=== PATIENT | female | born 1980 | race Caucasian/White ===

== ENCOUNTER 2022-05-29 12:42 | Emergency (ER) | payer MEDICAID, SELFPAY ==
[2022-05-29 12:49] VITALS: BP 102/77; PULSE 86; RESP 18; O2SAT 97; BMI 25.7
--- NOTE | 2022-05-29 12:58 | ED_ITS ---
HPI - General Adult General Time Seen by Provider: 12:57 Date Seen: 05/29/22 Chief complaint: Allergic Reaction Stated complaint: Allergic reaction, itching, swelling hands Time Seen by Provider: 05/29/22 12:43 Source: patient and RN notes reviewed Mode of arrival: ambulatory Limitations: no limitations History of Present Illness HPI narrative: Patient is coming in with concern of allergic reaction happening around all of her fingers. She was using fake nail materials. She states she has been doing this for about 4 months but 2 days ago use a different color and has started to have swelling and itching around her fingers. She took the nails off. She did not use Benadryl as it makes her so tired. She is wondering if will put her on prednisone. She has had no systemic symptoms such is mouth or respiratory symptoms. She has never had this happen before and we did review that it may notice be the the color but certainly could be the chemicals that she is starting to react to. We did discuss contact dermatitis which could be coming from the chemicals in the nails. All around the ends of her fingers and around the nail beds there are itchy and swollen. Related Data Allergies Allergy/AdvReac Type Severity Reaction Status Date / Time mold Allergy Uncoded 05/29/22 12:57 Review of Systems Status of ROS: Reports: 6 or more systems reviewed and unremarkable except as noted in History and below Exam Const: Vital Signs, click to edit/add: Vital Signs - 24 hr 05/29/22 12:49 Pulse Rate [Apical ] 86 Respiratory Rate 18 Blood Pressure [Ri ght Upper Arm] 102/77 Pulse Oximetry 97 Oxygen Delivery Me thod Room Air Documenting provider has reviewed patient's vital signs: yes Common normals: no apparent distress, average body habitus, oriented x3, no limitations, healthy appearing and alert HENMT: Common normals: normocephalic, head/scalp atraumatic, hearing grossly normal bilaterally, external nose normal, moist oral mucous membranes and oropharynx normal Head and scalp: normocephalic and atraumatic Nose: external nose normal Eye: Common normals: PERRL, EOMs intact bilaterally, conjunctivae normal and no scleral icterus Conjunctiva: conjunctiva(e) normal Pupil: PERRL Resp: Common normals: normal respiratory effort, no retractions, no use of accessory muscles and clear to auscultation bilaterally Auscultation: clear to auscultation bilaterally Cardio: Common normals: regular rate, regular rhythm, S1 normal heart sound, S2 normal heart sound, no gallops, no clicks and no murmurs Rate: regular rate Rhythm: regular rhythm Heart sounds: S1 normal and S2 normal Neuro: Common normals: oriented x3 Sensorium/orientation: alert Skin: Narrative: Around the ends of the fingers at the end of the nails and along the sides of the nail beds, there is some erythema, warmth. A few of the ends look a little bit more excoriated almost like a contact dermatitis. Nothing concerning regarding infection at this time on my visualization. Course Vital Signs Vital signs: Initial Vital Signs Temperature Source Temporal Artery Scan 05/29/22 12:49 Pulse Rate 86 05/29/22 12:49 Pulse Rhythm 05/29/22 12:49 Respiratory Rate 18 05/29/22 12:49 Blood Pressure 102/77 05/29/22 12:49 Blood Pressure Mean 85 05/29/22 12:49 Pulse Oximetry 97 05/29/22 12:49 Oxygen Delivery Method 05/29/22 12:49 Vital Signs Pulse Rate 86 05/29/22 12:49 Respiratory Rate 18 05/29/22 12:49 Blood Pressure 102/77 05/29/22 12:49 Pulse Oximetry 97 05/29/22 12:49 Oxygen Delivery Method 05/29/22 12:49 Pulse Rate 86 05/29/22 12:49 Respiratory Rate 18 05/29/22 12:49 Blood Pressure 102/77 05/29/22 12:49 Pulse Oximetry 97 05/29/22 12:49 Oxygen Delivery Method 05/29/22 12:49 Critical Care Time Critical Care Time Critical Care Time: No Discharge Plan Discharge Clinical Impression: Contact dermatitis Patient Disposition: Home, Self-Care Condition: Stable Instructions: Contact Dermatitis (ED) Additional Instructions: Do not use these nail products. Would avoid nail products all together for awhile. Can use claritin once to twice daily as needed for itching. Use prednisone as prescribed, take with food. If your fingers are not improving with these measures in the next week or if there are further concerns, may need to see dermatology. Follow Up/Referrals: Glen Carrera MD [Primary Care Provider] - Stand Alone [facility] Info Inst[facility]
== END 2022-05-29 13:29 | disposition home or self-care (01) ==
PROVIDERS: Emergency Provider Family Medicine; PCP Surgery
DX: L23.5 Allergic contact dermatitis due to other chemical products (principal)
CPT/HCPCS: 99283; 99284

== ENCOUNTER 2023-02-01 03:12 | Emergency (ER) | payer MEDICAID, SELFPAY ==
[2023-02-01 03:29] VITALS: BP 134/76; PULSE 75; RESP 20; TEMP 36.2; O2SAT 96; BMI 25.3
--- NOTE | 2023-02-01 03:51 | ED.GENADULT ---
HPI - General Adult General Chief complaint: Headache/Migraine Stated complaint: Head Pain and swelling Time Seen by Provider: 02/01/23 03:39 Source: patient Mode of arrival: ambulatory Limitations: no limitations History of Present Illness HPI narrative: 42-year-old female presents the emergency department with ?swelling? to the back of her neck and head area. There is no visible swelling. There is no trauma or injury. She reports that she has been having some ongoing mild headache and neck and upper back pain. She has been working with her chiropractor. She last had an adjustment 2 days ago. She denies any numbness or tingling. She has focal tenderness at the base of the right occiput. She took some ibuprofen at 9:00 a.m. and then again about 2 hours prior to arrival with no improvement. Note that this is about a 16 hour interval in between doses. She is not using Tylenol. She has not tried heat, ice. Headache is accompanied by some photophobia had some mild nausea. No use of muscle relaxants. No prior history of head or neck surgeries. No numbness or tingling or weakness in the arms. No stroke-like symptoms. No fever. Past medical history she reports is notable for anxiety she has some p.r.n. lorazepam that she last used about a week ago and she smokes marijuana daily. She denies any other long-term health problems. Her only allergies to mold. ROS is notable for the HEENT and musculoskeletal symptoms as above, otherwise denies times 12 systems. Related Data Home Medications Medication Instructions Recorded Confirmed albuterol sulfate 90 mcg/actuation 1 - 2 puff inhalation Q4H PRN cough 02/01/23 02/01/23 aerosol inhaler (Ventolin HFA) ibuprofen 600 mg tablet 600 mg PO Q6H PRN 02/01/23 02/01/23 ketoconazole 2 % shampoo topical 02/01/23 lorazepam 1 mg tablet 1 mg PO Q6H PRN 02/01/23 02/01/23 metronidazole 500 mg tablet 500 mg PO BID 02/01/23 02/01/23 Previous Rx's Medication Instructions Recorded cyclobenzaprine 10 mg tablet 5 - 10 mg PO BID PRN muscle spasm 02/01/23 #10 tabs ibuprofen 600 mg tablet 600 mg PO Q6-8H PRN headache #20 02/01/23 tabs Allergies Allergy/AdvReac Type Severity Reaction Status Date / Time mold Allergy Uncoded 05/29/22 12:57 PFSH [facility] Social History Smoking Status: Current every day smoker Do you use any of these nicotine containing products: None Second hand tobacco smoke exposure: No How often do you have a drink containing alcohol: never How often do you have six or more drinks on one occasion: Never AUDIT-C Alcohol total score: 0 Non-prescribed substance use: denies use service: No Exam Const: Vital Signs, click to edit/add: Vital Signs - 24 hr 02/01/23 03:29 Temperature 97.2 F L Pulse Rate [Right Pulse Oximeter] 75 Respiratory Rate 20 Blood Pressure [Le ft Upper Arm] 134/76 Pulse Oximetry 96 Oxygen Delivery Me thod Room Air Documenting provider has reviewed patient's vital signs: yes Other: Poor insight. Mildly disheveled HENMT: Common normals: normocephalic, head/scalp atraumatic and TM's normal bilaterally Head and scalp: normocephalic and atraumatic Tympanic membrane: TM's normal bilaterally Mouth: oral and palatal mucosa normal Throat: posterior oropharynx normal Other: Absolutely no visible swelling to the neck. She is point tender to palpation of the right greater occipital nerve. Eye: Common normals: PERRL, EOMs intact bilaterally and conjunctivae normal General eye: normal appearance of both eyes Conjunctiva: conjunctiva(e) normal Pupil: PERRL Neck & C-Spine: Common normals: full ROM, no lymphadenopathy, supple and no meningeal signs Other: Mild paraspinal muscle tenderness, no point bony tenderness. Normal range of motion. Lymph: Lymphatic: no lymphadenopathy noted Resp: Common normals: normal respiratory effort and no use of accessory muscles Effort & inspection: able to speak in complete sentences Cardio: Common normals: regular rate, regular rhythm, S1 normal heart sound and S2 normal heart sound Rate: regular rate Rhythm: regular rhythm Heart sounds: S1 normal and S2 normal Back & Pelvis: Thoracic spine/upper back: normal to inspection Neuro: Meningeal signs: no meningeal signs Cranial nerves: CN normal except as noted Speech: speech normal Gait (neuro): normal gait Motor exam: strength 5/5 throughout, no tremor noted and no movement abnormalities noted Psych: Insight: limited Judgement: limited Skin: Common normals: no rashes or lesions noted General skin exam: no rashes or lesions noted Course Vital Signs Vital signs: Initial Vital Signs Temperature 97.2 F L 02/01/23 03:29 Temperature Source Temporal Artery Scan 02/01/23 03:29 Pulse Rate 75 02/01/23 03:29 Pulse Rhythm Regular 02/01/23 03:29 Respiratory Rate 20 02/01/23 03:29 Blood Pressure 134/76 02/01/23 03:29 Blood Pressure Mean 95 02/01/23 03:29 Pulse Oximetry 96 02/01/23 03:29 Oxygen Delivery Method Room Air 02/01/23 03:29 Vital Signs Temperature 97.2 F L 02/01/23 03:29 Pulse Rate 75 02/01/23 03:29 Respiratory Rate 20 02/01/23 03:29 Blood Pressure 134/76 02/01/23 03:29 Pulse Oximetry 96 02/01/23 03:29 Oxygen Delivery Method Room Air 02/01/23 03:29 Temperature 97.2 F L 02/01/23 03:29 Pulse Rate 75 02/01/23 03:29 Respiratory Rate 20 02/01/23 03:29 Blood Pressure 134/76 02/01/23 03:29 Pulse Oximetry 96 02/01/23 03:29 Oxygen Delivery Method Room Air 02/01/23 03:29 Medical Decision Making MDM Narrative Medical decision making narrative: Tension headache with greater occipital nerve impingement. There are no signs of intracranial hemorrhage, meningitis, shingles, trauma or injury. Recommend L of IV fluid, IV Toradol, IV Benadryl and oral Tylenol. Low re-evaluated in our. Anticipate discharge on Flexeril. No indications for labs or x-rays. Update: Improvement in pain with Toradol and medications given. Counseled on alarm symptoms, she requests a new prescription for ibuprofen 600 mg which is provided also Flexeril as needed p.r.n.. follow up as needed Discharge Plan Discharge Clinical Impression: Tension headache Patient Disposition: Home w/ Parent or Adult Condition: Improved Instructions: Tension Headache (ED) Additional Instructions: As we discussed, there is no swelling in your head. That abnormal feeling is from pressure on your greater occipital nerve from muscular tension. I am glad the medications helped. I will give you a prescription for ibuprofen and a muscle relaxant, Flexeril to use as needed if your symptoms recur. I would recommend that you continue visiting the chiropractor. Typically, headaches do not need to be seen in the emergency department unless there are stroke-like symptoms or a fever over 100.4 or severe trauma Activity Level: No Restrictions Discharge Diet: Regular Prescriptions: New ibuprofen 600 mg tablet 600 mg PO Q6-8H PRN (Reason: headache) Qty: 20 0RF cyclobenzaprine 10 mg tablet 5 - 10 mg PO BID PRN (Reason: muscle spasm) Qty: 10 0RF No Action ketoconazole 2 % shampoo topical metronidazole 500 mg tablet 500 mg PO BID lorazepam 1 mg tablet 1 mg PO Q6H PRN ibuprofen 600 mg tablet 600 mg PO Q6H PRN albuterol sulfate [Ventolin HFA] 90 mcg/actuation HFA aerosol inhaler 1 - 2 puff INHALATION Q4H PRN (Reason: cough) Follow Up/Referrals: Glen Carrera MD [Primary Care Provider] - Stand Alone Forms: [employer] Info Instructions
[2023-02-01] MEDS: diphenhydrAMINE 25 MG in 0.9 % SODIUM CHLORIDE 100 ml 100 ML 402 MG IVPB (04:09)
[2023-02-01] MEDS: KETOROLAC 15 MG/ML inj IVP (04:09)
[2023-02-01] MEDS: 0.9 % SODIUM CHLORIDE 1000 ml 1,000 ML IV (04:09)
--- NOTE | 2023-02-01 04:28 | ED.NURSE ---
pt pressed call light and stated that she wanted her IV out. Patient states that she is felling better and doesnt like how the IV is making her arm feel. Patient states that she belives that the toradol amde al of the swelling go down in her head and she is feeling much better and would like to go home.
== END 2023-02-01 04:35 | disposition home or self-care (01) ==
LOC: ED 04:35
PROVIDERS: Emergency Provider Family Medicine; PCP Surgery
DX: G44.209 Tension-type headache, unspecified, not intractable (principal)
CPT/HCPCS: 96365; 96375; 99283; 99284; J1200; J1885; J7030

== ENCOUNTER 2023-11-05 13:42 | Outpatient (CLI) | payer MEDICAID, SELFPAY | END 2023-11-05 13:43 | disposition home or self-care (01) | LOC: NFLDREF 13:44 | PROVIDERS: PCP Surgery; Visit Provider Obstetrics & Gynecology | DX: R30.0 Dysuria (principal) | CPT/HCPCS: 87086 ==

== ENCOUNTER 2024-01-07 08:13 | Day surgery (SDC) | payer MEDICAID, SELFPAY ==
[2024-01-07] MEDS: LACTATED RINGERS 1000 ML 1,000 ML 100 ML IV ×2 (09:00→10:24)
[2024-01-07] MEDS: SODIUM CHLORIDE 0.9 % (FLUSH) 10 ML SYRINGE IVF (09:00)
[2024-01-07] MEDS: MIDAZOLAM HCL 1 MG/ML inj IVP (09:00)
[2024-01-07 09:06] LABS: Ur HCG Qualitative* Negative (Negative)
[2024-01-07 09:10] VITALS: BP 119/72; PULSE 67; RESP 16; TEMP 36.4; O2SAT 99
[2024-01-07 09:12] VITALS: BMI 26.3
[2024-01-07] MEDS: CEFAZOLIN 2 GM INJ IVP (09:40)
[2024-01-07] MEDS: BUPIVACAINE 0.25% 30 ML 4 ML INJECTION (09:49)
--- NOTE | 2024-01-07 10:30 | W.ANESCHARGE ---
Anesthesia Charges Start Date/Time Anesthesia Start Date: 01/07/24 Anesthesia Start Time: 09:36 Stop Date/Time Anesthesia Stop Date: 01/07/24 Anesthesia Stop Time: 10:45
--- NOTE | 2024-01-07 10:38 | PM.GSPRC ---
Operative Note Date of procedure: 01/07/24 Pre-op diagnosis: Right lower back lipoma Post-op diagnosis: Same Type of Procedure: Excision of right lower back lipoma, x2 Indications: Patient is a 43-year-old female who presented to clinic with symptomatic right lower back lipomas. She reports significant discomfort and pain when pushing on the area. Risks and benefits of excision in the operating room were discussed at length the patient. Risks included, but were not limited to: Bleeding, infection, risk of damage to surrounding structures, risk of recurrence and possible need for additional procedures. All questions and concerns were addressed with patient agreeing to proceed. Procedure Description: After discussing the risks and benefits of the procedure, the patient signed informed consent.? The operative site was marked and the patient was brought to the operating room and placed on the operating table in lateral decubitus position.? Care was taken to pad the patient's pressure points.?? The patient was then given sedation by anesthesia.?? The operative site was then prepped and draped in the usual sterile fashion.? A time-out was then performed. The area was anesthetized with 1% lidocaine and 0.25% Marcaine. A transverse 3 cm incision was made over the marked area. Dissection was carried down through subcutaneous tissues. Lipomas were difficult to palpate intraoperatively. Several encapsulated mature fat nodules were appreciated underneath the incision. These were excised and passed off to the back table for pathology. A total of 2 lesions were removed, measuring approximately 2.5 cm and 1.5 cm. After removal of the lesions the area was again palpated, with no other lipomatous masses identified. The cavity was irrigated with normal saline. The incision was then closed in layers with interrupted 3 0 Vicryl and running 4-0 Monocryl. Dermabond was placed over top. ? The patient was then woken and transported to the recovery area in stable condition. ? The patient tolerated the procedure well. Findings: Mature lipomatous fat nodules of the right lower back. Anesthesia: MAC and local Surgeon: Bozena Blankenship MD Estimated blood loss (mL): 5 Specimen: Other Additional Specimen Information: Right lower back mass Condition: stable Disposition: same day
--- NOTE | 2024-01-07 10:43 | W.ANESCHARGE ---
Anesthesia Charges Start Date/Time Anesthesia Start Date: 01/07/24 Anesthesia Start Time: 09:36 Stop Date/Time Anesthesia Stop Date: 01/07/24 Anesthesia Stop Time: 10:45
[2024-01-07 10:45] VITALS: BP 109/73; PULSE 54; RESP 16; TEMP 36.6; O2SAT 92
[2024-01-07 11:00] VITALS: BP 103/69; PULSE 57; RESP 16; O2SAT 98
[2024-01-07 11:15] VITALS: BP 101/63; PULSE 59; RESP 16; O2SAT 97
--- NOTE | 2024-01-07 11:33 | SUR.PHASEII ---
pt requesting nurse to take out IV, pt drinking water.
--- NOTE | 2024-01-07 12:32 | SUR.PHASEII ---
Report was given to internal communications writer at 1145 that patient had received all she could have and patient had requested IV be removed multiple times so IV was taken out by reporting RN. Pt had received MAC anesthesia and had been on SDS for over an hour. Broom Worker attempted to assist patient to get up post op at 1150. Patient verbalized I feel like i'm going to throw up when I sit up. Broom Worker did tell patient sometimes this helps them feel better when they do. Patient verbalized,why are you talking so fucking loud, I don't like you I want my other nurse back. Broom Worker quieted voice even more and verbalized, I understand you are not feeling well but we need to get you up so you can take a big nap at home and sleep off anesthesia. It was also reported to internal communications writer that patient arrived to [facility] nauseated pre op. Broom Worker then offered Q-easy patch as well. Pt verbalized, I don't want your smelly patch. Broom Worker verbalized understanding. Patient sat up in bed and closed eyes. After a few minutes, internal communications writer encouraged patient to bring legs to the side of the bed and patient verbalized, get away I don't like you I want my other nurse back you're so fucking pushy. KAYLAN Ford in room during this episode as well as Patients friend. Broom Worker exited room and consulted NICHOLE Bhardwaj. Lashae spoke with patient and offered to replace IV to administer Haldol or Benadryl. Patient declined while sitting in w/c and verbalized,I just want to go home. Patient did have 200cc brown emesis in room prior to getting into w/c and was spitting into emesis bag when in w/c. Lashae VARELA verbalized understanding and escorted patient out to vehicle with KAYLAN Ford assisting.
== END 2024-01-07 12:30 | disposition home or self-care (01) ==
PROVIDERS: Obstetrics & Gynecology; PCP Surgery; Visit Provider Surgery
PROC: (CPT 21931; principal; 2024-01-07 09:30)
DX: D17.1 Benign lipomatous neoplasm of skin and subcutaneous tissue of trunk (principal)
CPT/HCPCS: 21931; 00300; 00400; 81025; 82565; 85018; 86850; 86900; 86901; 88305; 88377; J0665; J0690; J1100; J1885; J2250; J2405; J2704; J3010; J3490; J7120

== ENCOUNTER 2024-01-08 22:49 | Emergency (ER) | payer MEDICAID, SELFPAY ==
[2024-01-08 23:19] VITALS: BP 93/60; PULSE 63; RESP 20; TEMP 36.7; O2SAT 97; BMI 25.3
--- NOTE | 2024-01-08 23:36 | ED.GENADULT ---
HPI - General Adult General Chief complaint: Post Op Complication Stated complaint: Post-surgery, incision site is red. Time Seen by Provider: 01/08/24 23:00 History of Present Illness HPI narrative: Patient is a 43-year-old woman who had a lipoma excised from the right posterior lumbar region yesterday. She comes in tonight stating that she feels like the area is swollen and she is having extreme pain. She has had no fevers no chills no night sweats no neurologic symptoms. The area of induration really has not changed. She states that she has been eating and drinking normally and has been having no other significant symptoms. Related Data Home Medications Medication Instructions Recorded Confirmed albuterol sulfate 90 mcg/actuation 1 - 2 puff inhalation Q4H PRN cough 02/01/23 01/08/24 aerosol inhaler (Ventolin HFA) ibuprofen 600 mg tablet 600 mg PO Q6H PRN 02/01/23 01/08/24 ketoconazole 2 % shampoo topical 02/01/23 10/20/23 lorazepam 1 mg tablet 1 mg PO Q6H PRN 02/01/23 01/08/24 fluconazole 150 mg tablet mg ONCE 01/04/24 Previous Rx's Medication Instructions Recorded cyclobenzaprine 10 mg tablet 5 - 10 mg (0.5 - 1 x 10 mg) PO BID 02/01/23 PRN muscle spasm #10 tabs Allergies Allergy/AdvReac Type Severity Reaction Status Date / Time prednisone Allergy Intermediate Agitated Verified 01/08/24 23:23 Review of Systems Status of ROS: Reports: 6 or more systems reviewed and unremarkable except as noted in History and below [facility] Medical History Ganglion of left wrist (2017) ?M67.432 - Ganglion, left wrist (ICD-10) History of vaginal delivery History of adenomatous polyp of colon (05/2019) ?Z86.010 - Personal history of colonic polyps (ICD-10) History of abnormal cervical Pap smear (2007) ?Z87.42 - Personal history of other diseases of the female genital tract (ICD-10) Surgical History History of lipoma ?Z86.018 - Personal history of other benign neoplasm (ICD-10) History of loop electrical excision procedure (LEEP) ?Z98.890 - Other specified postprocedural states (ICD-10) History of colposcopy (2007) ?Z98.890 - Other specified postprocedural states (ICD-10) Family History Maternal Grandmother Lung cancer Bone cancer Diabetes Social History Smoking Status: Current every day smoker What tobacco products do you use: cigarettes Do you use any of these nicotine containing products: None Second hand tobacco smoke exposure: No How often do you have a drink containing alcohol: never How often do you have six or more drinks on one occasion: Never AUDIT-C Alcohol total score: 0 Non-prescribed substance use: marijuana (any form) Caffeine: Yes Are you using contraception or practicing any form of control: Yes (nexaplon) service: No Exam Narrative: Exam Narrative: EXAM GENERAL: Patient is very emotional. EYES: No scleral icterus. LYMPH: No supraclavicular or cervical lymphadenopathy. SKIN: Examination of her wound on her posterior lumbar region shows normal area of wound healing induration. No significant erythema no drainage no pustule in's no fluctuance. EXT: No dependent lower extremity pedal edema. HEART: Regular rate and rhythm with no murmurs, rubs, or gallops. LUNGS: Clear to auscultation bilaterally with no crackles or wheezes. ABD: Soft, non tender, non distended. PSYCH: Good eye contact, speech is not pressured. Const: Vital Signs, click to edit/add: Vital Signs - 24 hr 01/08/24 23:19 Temperature 98.1 F Pulse Rate [Pulse Oximeter] 63 Respiratory Rate 20 Blood Pressure [Ri ght Upper Arm] 93/60 Pulse Oximetry 97 Oxygen Delivery Me thod Room Air Course Course ED Course: Patient seen and examined. Vital Signs Vital signs: Initial Vital Signs Temperature 98.1 F 01/08/24 23:19 Temperature Source Temporal Artery Scan 01/08/24 23:19 Pulse Rate 63 01/08/24 23:19 Pulse Rhythm Regular 01/08/24 23:19 Pulse Strength 3+ Normal 01/08/24 23:19 Respiratory Rate 20 01/08/24 23:19 Blood Pressure 93/60 01/08/24 23:19 Blood Pressure Mean 71 01/08/24 23:19 Blood Pressure Position Left Lateral 01/08/24 23:19 Pulse Oximetry 97 01/08/24 23:19 Oxygen Delivery Method Room Air 01/08/24 23:19 Vital Signs Temperature 98.1 F 01/08/24 23:19 Pulse Rate 63 01/08/24 23:19 Respiratory Rate 20 01/08/24 23:19 Blood Pressure 93/60 01/08/24 23:19 Pulse Oximetry 97 01/08/24 23:19 Oxygen Delivery Method Room Air 01/08/24 23:19 Temperature 98.1 F 01/08/24 23:19 Pulse Rate 63 01/08/24 23:19 Respiratory Rate 20 01/08/24 23:19 Blood Pressure 93/60 01/08/24 23:19 Pulse Oximetry 97 01/08/24 23:19 Oxygen Delivery Method Room Air 01/08/24 23:19 Medical Decision Making [facility] Narrative Medical decision making narrative: Patient is a 43-year-old woman comes in today with postoperative pain. Patient is nontoxic in appearance and has a normal exam on my part. I did carefully palpated and examined the area of the wound I find no abnormalities. At this time I did offer reassurance. Patient does not tolerate Tylenol is been taking ibuprofen. Did give her 15 tablets of tramadol. I recommended continued wound care with a follow-up with her surgeon as scheduled. Differential diagnosis includes but not limited to normal wound healing cellulitis abscess neurologic injury. Discharge Plan Discharge Clinical Impression: Post-op pain Condition: Stable Additional Instructions: Continue ibuprofen Ice Tramadol as directed Symptomatic care Follow-up with your doctor as discussed. Activity Level: No Restrictions Discharge Diet: Regular Prescriptions: No Action fluconazole 150 mg tablet ONCE Rx Instructions: take at end of antibiotics for yeast infection ketoconazole 2 % shampoo topical lorazepam 1 mg tablet 1 mg PO Q6H PRN ibuprofen 600 mg tablet 600 mg PO Q6H PRN albuterol sulfate [Ventolin HFA] 90 mcg/actuation HFA aerosol inhaler 1 - 2 puff INHALATION Q4H PRN (Reason: cough) cyclobenzaprine 10 mg tablet 5 - 10 mg PO BID PRN (Reason: muscle spasm) Qty: 10 0RF Follow Up/Referrals: Glen Carrera MD [Primary Care Provider] - Stand Alone Forms: [employer] Info Instructions
== END 2024-01-09 00:09 | disposition home or self-care (01) ==
LOC: ED 23:45
PROVIDERS: Emergency Provider Internal Medicine; PCP Surgery
DX: G89.18 Other acute postprocedural pain (principal)
CPT/HCPCS: 99283

== ENCOUNTER 2025-01-21 06:26 | Emergency (ER) | payer MEDICAID, SELFPAY ==
--- OUTSIDE RECORDS SUMMARY | 2025-01-21 06:28 | XMS_ITS | Clinical Summary ---
Author Organization [place] Address [address] [facility] [place] [address] Care Team Providers Care Placement Manager Name Role Phone [facility], [facility] Primary Care Provider Allergies Active Allergy Reactions Criticality Noted Date Comments Prednisone 10/09/2018 anxiety Medications LORazepam (ATIVAN) 1 MG tablet Take 1 mg by mouth every 6 hours as needed for anxiety (pt does not take more that 4 pills/month) Active Social History Tobacco Use Types Packs/Day Years Used Date Smoking Tobacco: Never Assessed Adolescent Education Answer Date Record ed Getting School Help Needed Not on file 12/06 Comments Unknown Sex and Gender Information Value Date Recorded Sex Assigned at Not on file Legal Sex Female 5:32 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 Gender Identity Not on file Sexual Orientation Not on file Last Filed Vital Signs Vital Sign Reading Time Taken Comments Blood Pressure 107/71 10/09/2018 6:45 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 Pulse - - Temperature 36.6 C (97.9 F) 10/09/2018 7:14 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 Respiratory Rate 16 10/09/2018 5:39 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 Oxygen Saturation 100% 10/09/2018 6:45 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 Inhaled Oxygen Concentration - - Weight - - Height - - Body Mass Index - - Plan of Treatment Not on file Care Teams Placement Manager Relationship Specialty Start Date End Date [facility], [facility] [address] [place] [address] PCP - General 10/09/18
--- OUTSIDE RECORDS SUMMARY | 2025-01-21 06:29 | XMS_ITS | Clinical Summary ---
Author Organization [employer] Address [facility] [place] [address] Care Team Providers Care Song Lyricist Name Role Phone Glen Carrera MD Primary Care Provider [phone]- [phone] Allergies Active Allergy Reactions Criticality Noted Date Comments Mold Extracts Other - Describe In Comment Field Comment: rash and swelling/ itching, Description: Prednisone Agitation 05/22/2014 Medications biotin 1 mg capIndications:H air loss Take 1 Capsule (1,000 mcg) by mouth. 90 Capsule 3 3 Active LORazepam (ATIVAN) 1 mg tabletIndication s:Anxiety TAKE 1 TABLET BY MOUTH EVERY 6 HOURS NEEDED. DO NOT TAKE MORE THAN 2 TABLETS PER WEEK. 30 Tablet 4 Active ibuprofen (ADVIL; MOTRIN) 600 mg tabletIndication s:Foot pain, left Take 1 Tablet (600 mg) by mouth every 6 hours if needed for Pain. Maximum of 3200 mg in 24 hours. 90 Tablet 1 4 Active albuterol HFA (PRO-AIR; VENTOLIN; PROVENTIL) 90 mcg/actuation inhalerIndicatio ns:Wheezing Inhale 1-2 Puffs by mouth every 4 hours if needed (Cough). 18 g 4 Active triamcinolone (ARISTOCORT; KENALOG) 0.1 % creamIndications :Skin irritation Apply topically to affected area(s) two times daily. Use twice daily on affected area for up to 2 weeks straight, then stop 80 g 4 Active hydrOXYzine HCL (ATARAX) 25 mg tabletIndication s:Anxiety Take 1 Tablet (25 mg) by mouth every 6 hours if needed for Anxiety. 25 Tablet 4 Active mupirocin 2% ointmentIndicati ons:Folliculitis Apply topically to affected area(s) three times daily. Use for up to 5 days 22 g 3 4 Active cetirizine (ZYRTEC) 10 mg tabletIndication s:Contact dermatitis, unspecified contact dermatitis type, unspecified trigger Take 1 Tablet (10 mg) by mouth once daily. 30 Tablet 4 Active ketoconazole 2% shampoo (NIZORAL) 2 % shampooIndicatio ns:Other seborrheic dermatitis lather on damp scalp, leave on for 5 minutes, then rinse with water. 240 mL 5 4 Active Hospital, Clinic, or Other Facility Administered Medication Ordered Dose Route Frequency Start Date End Date Status etonogestrel subdermal implant (NEXPLANON) 1 EachIndications:Encounter for removal and reinsertion of Nexplanon 1 Each Sdrm Q 3 YEARS 08/06/2021 Active Active Problems Problem Noted Date Diagnosed Date De Quervain's tenosynovitis, left 04/21/2023 Ganglion of left wrist 08/28/2021 Adenomatous colon polyp 06/02/2019 Overview (06/02/2019): Colonoscopy 05/2019 polyp, repeat in 5 years Anxiety 02/08/2018 PTSD (post-traumatic stress disorder) 02/08/2018 Tobacco use 09/10/2016 Other seborrheic dermatitis 09/11/2010 Contact dermatitis and other eczema 02/20/2009 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 02/05/2009 Overview (02/10/2024): 03/25/2007 HSIL 04/09/2007 ASC-H/HPV+ 05/27/2007 NIL 06/02/2008 HSIL 09/13/2008 Waldo: NICHELLE 3 with extension into endocervical glands 02/05/2009 LEEP: NICHELLE 3, Positive NICHELLE 3 endocervical margin 12/25/2015 ASCUS/HPV Negative 04/23/2017 ASCUS/HPV Negative 02/08/2018 LSIL/HPV+ 03/01/2018 Waldo: NICHELLE I, ECC NICHELLE I 03/08/2019 NIL/HPV Negative 04/24/2020 NIL/HPV Negative 01/22/2023 ASCUS/HPV +, HPV 16/18 negative (Provider recommended colp, patient declines) 08/14/23 ASCUS/HPV+, HPV 16/18 Negative Plan: Colposcopy Unspecified sinusitis (chronic) 09/25/2008 Unspecified constipation 08/14/2008 Periapical abscess without sinus 03/10/2007 Depressive disorder, not elsewhere classified Resolved Problems Problem Noted Date Diagnosed Date Resolved Date 35 weeks gestation of 12/31/2016 02/08/2018 Second trimester 10/06/2016 0 12/03/2016 ASCUS of cervix with negative high risk HPV 12/25/2015 02/17/2018 Overview (05/07/2017): 12/2015; 04/2017 Plan: Pap/HPV due 04/2018 Toxic effect of venom(989.5) 05/16/2012 12/25/2015 Unspecified asthma(493.90) 04/21/2012 1 Urinary tract infection, site not specified 11/20/2011 12/25/2015 Contact dermatitis and other eczema, due to unspecified cause 03/14/2011 12/25/2015 Cellulitis and abscess of unspecified site 09/11/2010 12/25/2015 Torticollis, unspecified 01/28/201002/2021 Acute atopic conjunctivitis 04/05/2009 12/25/2015 Dysplasia of cervix, unspecified 02/05/2009 02/08/2018 Unspecified symptom associat ed with female genital organs 06/02/2008 12/25/2015 Bipolar disorder, unspecified 02/07/2008 07/16/2021 Infections of genitourinary tract antepartum 7 12/25/2015 Dysuria 06/16/2007 12/25/2015 CONDITION IN OTHER, ANTEPARTUM 05/27/2007 12/25/2015 Abnormal glandular Papanicol aou smear of cervix 05/27/2007 02/08/2018 Acute bronchitis 08/06/2004 12/25/2015 2 DEG BURN FINGR W THUMB 11/14/2003 Immunizations Immunization Administration Dates Next Due Td (Age >=7 Years) 08/25/2022 Td, Preservative Free (age >= 7 Years) 1,06/02/2008 Tdap 08/16/2011 Family History Medical History Relation Name Comments Cancer Maternal Grandmother lung, b one; not sure where cancer started Diabetes Maternal Grandmother Cancer-breast Other Paternal Great Aunt Cancer-colon No Family History Cancer-ovarian No Family History Relation Name Status Comments Maternal Grandmother Other Social History Tobacco Use Types Packs/Day Years Used Date Smoking Tobacco: Every Day Cigarettes 2 12.3 Started: 2012 Smokeless Tobacco: Former Tobacco Cessation:Ready to Q uit: No; Counseling Given: No Alcohol Use Standard Drinks/Week Comments No 0 (1 standard drink = 0.6 oz pur e alcohol) Social Connections Answer Date Recorded Do you often feel lonely or isolated from those around you? 0 08/14/2023 Financial Resource Strain Answer Date R ecorded Difficulty of Paying Living Expenses 3 08/14/2023 Difficulty of Paying Living Expenses Not on file 08/14/2023 Food Insecurity Answer Date Recorded Do you worry your food will run out before you are able to buy more? 1 08/14/2023 Transportation Needs Answer Date Record ed Does lack of transportation keep you from medica l appointments? 1 08/14/2023 Does lack of transportation keep you from work, meetings or getting things that you need? 1 08/14/2023 Housing Stability Answer Date Recorded What is your housing situation today? 1 08/14/2023 Comments No Sex and Gender Information Value Date Recorded Sex Assigned at Not on file Legal Sex Female 6:22 AM PAPIER MACHE MOLDER Gender Identity Not on file Sexual Orientation Not on file Obstetrics History Para Term AB IAB SAB Ectopic Multiple Livin g Live Births 5 3 3 0 0 0 0 0 0 3 Date Outcome GA Total Labor Labor/2nd/3rd Weight Sex Type Anes PTL Mar A1 A5 Name Clin Term Term Term Last Filed Vital Signs Vital Sign Reading Time Taken Comments Blood Pressure 120/85 09/20/2024 11:58 AM PAPIER MACHE MOLDER Pulse 82 09/20/2024 11:58 AM PAPIER MACHE MOLDER Temperature 37 C (98.6 F) 04/07/2023 11:26 AM CDT Respiratory Rate 16 08/29/2021 2:01 PM PAPIER MACHE MOLDER Oxygen Saturation 100% 09/20/2024 11: 58 AM PAPIER MACHE MOLDER Inhaled Oxygen Concentration - - Weight 72.5 kg (159 lb 12.8 oz) 024 11:58 AM PAPIER MACHE MOLDER Height 164 cm (5' 4.57) 08/29/2021 2:01 PM PAPIER MACHE MOLDER Body Mass Index 26.95 08/29/2021 2:01 PM PAPIER MACHE MOLDER Plan of Treatment Health Maintenance Due Date Last Done Comments Pneumococcal series for age 6-49 (1 of 2 - PCV) 2001 Depression screening for age 12+ 12/03/2017 12/03/2016, 12/25/2015, 10/29/2015, Additional history exists BMI (ht and wt on same day) for age 18+ 08/29/2022 08/29/2021, 08/28/2021, 07/15/2021, Additional history exists COVID-19 vaccine series (2023- season) 2024 Influenza Vaccine (Season Ended) 2025 Pap test for age 21-65 09/07/2026 3 (Verified in Care Everywhere or Patient Record), 08/14/2023, 08/14/2023, Additional history exists Colonoscopy through age 75 12/07/202812/07, 06/01/2019, 06/01/2019 Tetanus booster 08/25/2032 08/25/2022, 02/2011, 08/16/2011, Additional history exists Tdap Completed 08/16/2011 Hepatitis C screening for ag e 18-79 Completed 12/25/2015 HIV for age 15-65 Completed 08/25/2022, 12/25/2015 Procedures Procedure Name Priority Date/Time Associated Diagnosis Comments COLONOSCOPY SCREENING Routine 12/07/2023 8:04 AM PAPIER MACHE MOLDER Polyp of colon, unspecified part of colon, unspecified type HPV HIGH RISK Routine 08/14/2023 4:52 PM CDT Screening for cervical cancer ANTI HIV 1/2 Routine 08/25/2022 3:33 PM PAPIER MACHE MOLDER Screen for STD (sexually transmitted disease) ANTI HCV Routine 12/25/2015 9:53 AM CDT Screen for STD (sexually transmitted disease) from Last 3 Months or Most Recently Relevant to Health Maintenance Results * (ABNORMAL) HPV HIGH RISK (08/14/2023 4:52 PM CDT) TYPE 16 Negative Negative 08/19/2023 5:05 PM PAPIER MACHE MOLDER [facility] TYPE 18 Negative Negative 08/19/2023 5:05 PM PAPIER MACHE MOLDER [facility] OTHER HIGH RISK TYPES Positive(A) Negative 08/19/2023 5:05 PM PAPIER MACHE MOLDER [facility] Other (Cervical) Non-Blood / Unknown 08/14/2023 4:52 PM CDT 08/17/2023 5:02 PM PAPIER MACHE MOLDER Narrative [facility] - 08/19/2023 5:05 PM PAPIER MACHE MOLDER Specimen is positive for the DNA of any one of, or combination of, the following high risk HPV types: 31, 33, 35, 39, 45, 51, 52, 56, 58, 59, 66, 68. HPV types 16 and 18 DNA were undetectable or below the pre-set threshold. Methodology: Ed Justine 4800 HPV Test Glen Carrera MD MICROBIOLOGY Final Resu lt [facility] [address] [place] [address], * ANTI HIV 1/2 (08/25/2022 3:33 PM PAPIER MACHE MOLDER) Pathologist [facility] [place] HIV-1/HIV-2 ANTIBODY Non-Reacti ve Non-Reacti ve 08/27/2022 12:17 PM PAPIER MACHE MOLDER [facility] Comment:HIV-1 p24 and HIV-1/ HIV-2 Ab not detected. Blood BLOOD SPECIMEN / Unknown Venipuncture / Unknown 08/25/2022 3:33 PM PAPIER MACHE MOLDER 08/25/2022 3:33 PM PAPIER MACHE MOLDER Glen Carrera MD SEND OUTS Final Resu lt [facility] [address] [place] [address], * COLONOSCOPY (06/01/2019 11:01 AM CDT) 06/01/2019 11:0 1 AM CDT Narrative Transcriptions Marco Estrada MD - 06/01/2019 12:37 PM CDT Patient Name: Sue Juan Procedure Date: 06/01/2019 Gender: Female Date of : 1980 Admit Type: Outpatient Procedure: Colonoscopy Proceduralist: Marco Estrada MD , Annemarie Gómez (Nurse) Indications/Pre-Op Diagnosis: Evaluation of unexplained GI bleeding Medications: Fentanyl 200 micrograms IV, Midazolam 4 mgIV, The level of sedation administered wasmoderate Procedure Description: The patient had risks, benefits and alternatives explained to andgave informed consent. The patient had a stable cardiopulmonary status and judged an adequate candidate for conscious sedation. The [id number] was passed through the anus and advanced to 4cm into the ileum. The colonoscopy was performed without difficulty. The patient tolerated the procedure well. The quality of the bowel preparation was good. The terminal ileum, ileocecal valve,appendiceal orifice, and rectum were photographed. Complications: No immediate complications. Estimated Blood Loss & Specimen: Estimated blood loss: none. Specimen collected - Yes and sent to Laboratory Findings: The perianal and digital rectal examinations were normal. The terminal ileum appeared normal. A 4 mm polyp was found in the sigmoid colon. The polyp was sessile.The polyp was removed with a cold snare. Resection and retrieval were complete. Non-bleeding internal hemorrhoids were found during retroflexion. The hemorrhoids were moderate. The exam was otherwise without abnormality on direct and retroflexion views. Impressions/Post-Op Diagnosis: - The examined portion of the ileum was normal. - One 4 mm polyp in the sigmoid colon, removed with a cold snare. Resected and retrieved. - Non-bleeding internal hemorrhoids. - The examination was otherwise normal on direct and retroflexionviews. Recommendation: - Patient has a contact number available for emergencies. The signsand symptoms of potential delayed complications were discussed with the patient. Return to normal activities tomorrow. Written discharge instructions were provided to the patient. - Resume previous diet. - Continue present medications. - Repeat colonoscopy is recommended. The colonoscopy date will be determined after pathology results from today's exam become available for review. Moderate Sedation: Moderate (conscious) sedation was administered by the endoscopy nurse and supervised by the endoscopist. The following parameters were monitored: oxygen saturation, heart rate, respiratory rate, blood pressure, adequacy of pulmonary ventilation and reponse to care. [facility] and nursing notes for moderate sedation details. Total physician intraservice time was 32 minutes. Marco Estrada MD 06/01/2019 12:37:42 PM This report has been signed electronically. Note Initiated On: 06/01/2019 11:01 AM Procedure Code(s): --- Professional --- 80496, Colonoscopy, flexible; with removalof tumor(s), polyp(s), or other lesion(s) bysnare technique Diagnosis Code(s): --- Professional --- K64.8, Other hemorrhoids D12.5, Benign neoplasm of sigmoid colon K92.2, Gastrointestinal hemorrhage,unspecified CPT copyright 2018 [employer]. All rights reserved. The codes documented in this report are preliminary and upon industrial relations representative reviewmay be revised to meet current compliance requirements. Scope In: 12:04:04 PM Scope Withdrawal Time 0 hours 19 minutes 13 seconds Scope Out: 12:33:09 PM us Marco Estrada MD PROCEDURE ORD Final Res ult * ANTI HCV (12/25/2015 9:53 AM CDT) HEPATITIS C ANTIBODY Non-Reacti ve Non-Reacti ve 12/25/2015 5:11 PM CDT [facility] Blood specimen (specimen) BLOOD SPECIMEN / Unknown Venipuncture / Unknown 12/25/2015 9:53 AM CDT 12/25/2015 9:54 AM CDT Narrative [facility] - 12/25/2015 5:11 PM CDT Antibodies to HCV not detected; does not exclude the possibility of exposure to HCV. us Stefanie PARISI SEND OUTS Final Resu lt [facility] [address] [place] [address], from Last 3 Months or Most Recently Relevant to Health Maintenance Insurance MEDICAID [facility] Advance Directives Documents on File Type Date Recorded Patient Glove Sewer Expl anation Healthcare Directive 09/06/2008 1:59 PM P HEALTH CARE, 09/06/08 Care Teams Song Lyricist Relationship Specialty Start Date End Date Glen Carrera MD [address] [place] [address] PCP - General Family Practice 08/31/18
[2025-01-21 06:47] VITALS: BP 135/103; PULSE 103; RESP 14; TEMP 37.1; O2SAT 98; BMI 25.7
--- NOTE | 2025-01-21 07:05 | ED_ITS ---
HPI - Abdominal Pain General Chief Complaint: Unspecified Complaint, Adult Stated Complaint: swollen armpit, joint pain, neck lesion Time Seen by Provider: 01/21/25 06:56 History of Present Illness HPI narrative: Pt has a sore in her right armpit and a sore on the back of her neck. She is in a lot of pain 44-year-old woman presenting to the emergency department with concern of some sores in right armpit and back of her neck. Quite painful. Actually try popping back of neck lesion with a pin hand has become much worse. Does not recall diagnosis of hidradenitis suppurativa or similar but she does recall having armpit lesion once before. Sounds like spontaneously resolved. No fever. No drainage. Related Data Home Medications ?Medication ?Instructions ?Recorded ?Confirmed albuterol sulfate 90 mcg/actuation 1 - 2 puff inhalation Q4H PRN cough 02/01/23 01/08/24 aerosol inhaler (Ventolin HFA) ibuprofen 600 mg tablet 600 mg PO Q6H PRN 02/01/23 01/08/24 ketoconazole 2 % shampoo topical 02/01/23 10/20/23 lorazepam 1 mg tablet 1 mg PO Q6H PRN 02/01/23 01/08/24 fluconazole 150 mg tablet mg ONCE 01/04/24 Previous Rx's ?Medication ?Instructions ?Recorded cyclobenzaprine 10 mg tablet 5 - 10 mg (0.5 - 1 x 10 mg) PO BID 02/01/23 PRN muscle spasm #10 tabs chlorhexidine gluconate 4 % 1 applic topical .Weekly PRN #473 01/21/25 topical liquid mL fluconazole 150 mg tablet 150 mg PO ONCE #1 tab 01/21/25 Allergies Allergy/AdvReac Type Severity Reaction Status Date / Time prednisone Allergy Intermediate Agitated Verified 01/21/25 06:51 Review of Systems Status of ROS Reports: 6 or more systems reviewed and unremarkable except as noted in History and below [facility] Medical History Ganglion of left wrist (2017) ?M67.432 - Ganglion, left wrist (ICD-10) History of vaginal delivery History of adenomatous polyp of colon (05/2019) ?Z86.010 - Personal history of colonic polyps (ICD-10) History of abnormal cervical Pap smear (2007) ?Z87.42 - Personal history of other diseases of the female genital tract (ICD-10) Surgical History History of lipoma ?Z86.018 - Personal history of other benign neoplasm (ICD-10) History of loop electrical excision procedure (LEEP) ?Z98.890 - Other specified postprocedural states (ICD-10) History of colposcopy (2007) ?Z98.890 - Other specified postprocedural states (ICD-10) Family History Maternal Grandmother Lung cancer Bone cancer Diabetes Social History Smoking Status: Current every day smoker What tobacco products do you use: cigarettes Do you use any of these nicotine containing products: None Second hand tobacco smoke exposure: No How often do you have a drink containing alcohol: never How often do you have six or more drinks on one occasion: Never AUDIT-C Alcohol total score: 0 Non-prescribed substance use: marijuana (any form) Caffeine: Yes Are you using contraception or practicing any form of control: Yes (nexaplon) service: No Exam Narrative: Exam Narrative: Pleasant. Seems little uncomfortable with transition. A number of mildly inflamed subcutaneous swellings in the right axilla. At most 1.5 cm in maximal diameter Quarter-size slight swelling with central abrasion/erosion as well in the back of the neck. No fluctuance. Erythematous with mild calor. Heart in elevated rate. Face with closed comedonal/inflamed acneiform lesions. Const: Vital Signs, click to edit/add: Vital Signs - 24 hr 01/21/25 06:47 Temperature 98.7 F Pulse Rate [Right Pulse Oximeter] 103 H Respiratory Rate 14 Blood Pressure [Ri ght Upper Arm] 135/103 H Pulse Oximetry 98 Oxygen Delivery Me thod Room Air Documenting provider has reviewed patient's vital signs: yes Course Vital Signs Vital signs: Initial Vital Signs Temperature 98.7 F 01/21/25 06:47 Temperature Source Temporal Artery Scan 01/21/25 06:47 Pulse Rate 103 H 01/21/25 06:47 Pulse Rhythm Regular 01/21/25 06:47 Pulse Strength 3+ Normal 01/21/25 06:47 Respiratory Rate 14 01/21/25 06:47 Blood Pressure 135/103 H 01/21/25 06:47 Blood Pressure Mean 113 H 01/21/25 06:47 Blood Pressure Position Sitting 01/21/25 06:47 Pulse Oximetry 98 01/21/25 06:47 Oxygen Delivery Method Room Air 01/21/25 06:47 Vital Signs Temperature 98.7 F 01/21/25 06:47 Pulse Rate 103 H 01/21/25 06:47 Respiratory Rate 14 01/21/25 06:47 Blood Pressure 135/103 H 01/21/25 06:47 Pulse Oximetry 98 01/21/25 06:47 Oxygen Delivery Method Room Air 01/21/25 06:47 Temperature 98.7 F 01/21/25 06:47 Pulse Rate 103 H 01/21/25 06:47 Respiratory Rate 14 01/21/25 06:47 Blood Pressure 135/103 H 01/21/25 06:47 Pulse Oximetry 98 01/21/25 06:47 Oxygen Delivery Method Room Air 01/21/25 06:47 MDM - Abdominal Pain MDM Narrative Medical decision making narrative: Seems to have combination of cystic acne and hidradenitis. I do not think there is anything drainable here. Would likely benefit from antibiotics at this point. Would want some MRSA coverage here I think. Perhaps some regular effort at reduction of kayla with chlorhexidine gluconate for example however this does not sound to be a regular recurrence. Sounds like with antibiotics tends toward yeast infections. Will provide fluconazole. See patient discharge plan for further discussion Consider placing warm packs a couple of times daily to your armpit. Can take up to 800 mg of ibuprofen or up to 1000 mg of acetaminophen per dose. I am sending in a prescription of fluconazole as requested with 1 refill. Also sending in a prescription for Hibiclens. It might be worth washing with this as an antibacterial soap in affected areas a couple of times weekly to keep bacterial load down and then might decrease frequency of infection (neither of these are available in [facility]) Antibiotic [facility] Medical Records Attestation: I reviewed the patient's medical records. Discharge Plan Discharge Clinical Impression: Hidradenitis axillaris Patient Disposition: Home, Self-Care Condition: Stable Additional Instructions: Consider placing warm packs a couple of times daily to your armpit. Can take up to 800 mg of ibuprofen or up to 1000 mg of acetaminophen per dose. I am sending in a prescription of fluconazole as requested with 1 refill. Also sending in a prescription for Hibiclens. It might be worth washing with this as an antibacterial soap in affected areas a couple of times weekly to keep bacterial load down and then might decrease frequency of infection (neither of these are available in [facility]) Antibiotic prescription of doxycycline from [facility] Prescriptions: New chlorhexidine gluconate 4 % liquid 1 applic topical .Weekly PRNQty: 473 0RF fluconazole 150 mg tablet 150 mg PO ONCE Qty: 1 2RF No Action fluconazole 150 mg tablet ONCE Rx Instructions: take at end of antibiotics for yeast infection ketoconazole 2 % shampoo topical lorazepam 1 mg tablet 1 mg PO Q6H PRN ibuprofen 600 mg tablet 600 mg PO Q6H PRN albuterol sulfate [Ventolin HFA] 90 mcg/actuation HFA aerosol inhaler 1 - 2 puff INHALATION Q4H PRN (Reason: cough) cyclobenzaprine 10 mg tablet 5 - 10 mg PO BID PRN (Reason: muscle spasm) Qty: 10 0RF Follow Up/Referrals: Glen Carrera MD [Primary Care Provider] - Stand Alone Forms: [facility] Info Instructions
--- OUTSIDE RECORDS SUMMARY | 2025-01-21 07:33 | XMS_ITS | Clinical Summary ---
Author Organization [facility] Address [address] [facility] [place] [address] Care Team Providers Care Painter Interior Finish Name Role Phone [facility], [facility] Primary Care Provider Allergies Active Allergy Reactions [...] on file Legal Sex Female 5:32 PM IN FILE OPERATOR Gender Identity Not on file Sexual Orientation Not on file Last Filed Vital Signs Vital Sign Reading Time Taken Comments Blood Pressure 107/71 10/09/2018 6:45 PM IN FILE OPERATOR Pulse - - Temperature 36.6 C (97.9 F) 10/09/2018 7:14 PM IN FILE OPERATOR Respiratory Rate 16 10/09/2018 5:39 PM IN FILE OPERATOR Oxygen Saturation 100% 10/09/2018 6:45 PM IN FILE OPERATOR Inhaled Oxygen Concentration - - Weight - - Height - - Body Mass Index - - Plan of Treatment Not on file Care Teams Painter Interior Finish Relationship Specialty Start Date End Date [facility], [facility] [address] [place] [address] PCP - General 10/09/18
== END 2025-01-21 07:42 | disposition home or self-care (01) ==
LOC: ED 07:31
PROVIDERS: Emergency Provider Family Medicine; PCP Surgery
DX: L73.2 Hidradenitis suppurativa (principal)
CPT/HCPCS: 99283

== ENCOUNTER 2025-04-26 07:48 | Emergency (ER) | payer OTHER, SELFPAY ==
--- OUTSIDE RECORDS SUMMARY | 2025-04-26 07:49 | XMS_ITS | Clinical Summary ---
Author Organization [facility] Address [address] [facility] [place] [address] Care Team Providers Care Director Of Field Service Name Role Phone [facility], [facility] Primary Care Provider Allergies Active Allergy Reactions [...] on file Legal Sex Female 5:32 PM DELICATE FABRICS PRESSER Gender Identity Not on file Sexual Orientation Not on file Last Filed Vital Signs Vital Sign Reading Time Taken Comments Blood Pressure 107/71 10/09/2018 6:45 PM DELICATE FABRICS PRESSER Pulse - - Temperature 36.6 C (97.9 F) 10/09/2018 7:14 PM DELICATE FABRICS PRESSER Respiratory Rate 16 10/09/2018 5:39 PM DELICATE FABRICS PRESSER Oxygen Saturation 100% 10/09/2018 6:45 PM DELICATE FABRICS PRESSER Inhaled Oxygen Concentration - - Weight - - Height - - Body Mass Index - - Plan of Treatment Not on file Care Teams Director Of Field Service Relationship Specialty Start Date End Date [facility], [facility] [address] [place] [address] PCP - General 10/09/18
--- OUTSIDE RECORDS SUMMARY | 2025-04-26 07:49 | XMS_ITS | Clinical Summary ---
Author Organization [facility] Address [address] [place] [address] Care Team Providers Care Hot Car Charger Name Role Phone None Reported, Pcp Primary Care Provider Unavail able Source Comments Patient records contain information from all sites at [facility]. For routine questions regarding patient records, call [phone] during business hours, M-F 8:00 AM - 5:00 PM Central Time. Record requests for emergency care only can be directed to [phone] at any time.[facility] Allergies Active Allergy Reactions Criticality Noted Date Comments Prednisone Anxiety 05/22/2014 anxiety Medications albuterol 90 mcg/actuation inhaler Inhale 1-2 puffs every 4 (four) hours as needed. 12/28/2023 Active etonogestreL (Nexplanon) 68 mg subdermal implant Inject 1 each under the skin. 08/06/2021 Active cefadroxiL (Duricef) 500 mg capsuleIndicati ons:Dermatitis, Aphthous Ulcer Take 1 capsule (500 mg total) by mouth 2 (two) times a day. 20 capsule 02/26/2025 Active Encounters Date Type Department Care Team Description 02/26/2025 12:27 AM CDT - 02/26/2025 12:53 AM CDT Emergency [facility] [address] [place] [id number] Nuno Mohr APRN, C.N.P., M.S.N. 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
--- OUTSIDE RECORDS SUMMARY | 2025-04-26 07:50 | XMS_ITS | Clinical Summary ---
Author Organization [employer] [facility] [employer] [facility] Address [address] [place] [address] Care Team Providers Care Deputy Administrator Name Role Phone Glen Carrera MD Primary Care Provider [phone] Allergies Active Allergy Reactions Criticality Noted Date Comments Mold Extracts Other - Describe In Comment Field Comment: rash and swelling/ itching, Description: Prednisone Agitation 05/22/2014 Medications biotin 1 mg capIndications:H air loss Take 1 Capsule (1,000 mcg) by mouth. 90 Capsule 3 3 Active ibuprofen (ADVIL; MOTRIN) 600 mg tabletIndication [...] with water. 240 mL 5 4 Active LORazepam 1 mg tabletIndication s:Anxiety TAKE 1 TABLET BY MOUTH EVERY 6 HOURS NEEDED. DO NOT TAKE MORE THAN 2 TABLETS PER WEEK. 30 Tablet 5 Active Hospital, Clinic, or Other Facility Administered [...] 04/09/2007 ASC-H/HPV+ 05/27/2007 NIL 06/02/2008 HSIL 09/13/2008 Egan: NICHELLE 3 with extension into endocervical glands 02/05/2009 LEEP: NICHELLE 3, Positive NICHELLE 3 endocervical margin 12/25/2015 ASCUS/HPV Negative 04/23/2017 ASCUS/HPV Negative 02/08/2018 LSIL/HPV+ 03/01/2018 Egan: NICHELLE I, ECC NICHELLE I 03/08/2019 NIL/HPV [...] 2 DEG BURN FINGR W THUMB 11/14/2003 Encounters Date Type Department Care Team Description 01/26/2025 Refill [facility] [address] [place] [address] Glen Carrera MD Refill Request (Lorazepam) from Last 3 Months Immunizations Immunization Administration Dates Next Due Td [...] Date Smoking Tobacco: Every Day Cigarettes 2 12.5 Started: 2012 Smokeless Tobacco: Former Tobacco Cessation:Ready [...] on file Legal Sex Female 6:22 AM TELLER COORDINATOR Gender Identity Not on file Sexual Orientation [...] Comments Blood Pressure 120/85 09/20/2024 11:58 AM TELLER COORDINATOR Pulse 82 09/20/2024 11:58 AM TELLER COORDINATOR Temperature 37 C (98.6 F) 04/07/2023 11:26 AM CDT Respiratory Rate 16 08/29/2021 2:01 PM TELLER COORDINATOR Oxygen Saturation 100% 09/20/2024 11: 58 AM TELLER COORDINATOR Inhaled Oxygen Concentration - - Weight 72.5 kg (159 lb 12.8 oz) 024 11:58 AM TELLER COORDINATOR Height 164 cm (5' 4.57) 08/29/2021 2:01 PM TELLER COORDINATOR Body Mass Index 26.95 08/29/2021 2:01 PM TELLER COORDINATOR Plan of Treatment Health Maintenance Due Date Last Done Comments Hepatitis B series for 19+ ( 1 of 3 - 19+ 3-dose series) 2001 Pneumococcal series for age 6-49 (1 of 2 - PCV) 2001 Depression screening for age 12+ 12/03/2017 12/03/2016, 12/25/2015, 10/29/2015, Additional history exists BMI (ht and wt on same day) for age 18+ 08/29/2022 08/29/2021, 08/28/2021, 07/15/2021, Additional history exists COVID-19 vaccine series ( season) 2024 Influenza Vaccine (#1) 2025 Pap test for age 21-65 09/07/2026 3 (Verified in Care Everywhere or Patient Record), 08/14/2023, 08/14/2023, Additional history exists Colonoscopy through age 75 12/07/202812/07, 06/01/2019, 06/01/2019 Tetanus booster 08/25/2032 08/25/2022, 1102/2011, 08/16/2011, Additional history exists Hepatitis C screening for ag e 18-79 Completed 12/25/2015 HIV for age 15-65 Completed 08/25/2022, 12/25/2015 Procedures Procedure Name Priority Date/Time Associated Diagnosis Comments COLONOSCOPY SCREENING Routine 12/07/2023 8:04 AM TELLER COORDINATOR Polyp of colon, unspecified part of colon, unspecified type VEHICLE ASSEMBLY INSPECTOR THIN PREP PAP SCREEN IMAGED Routine 08/14/2023 4:52 PM CDT Screening for cervical cancer ANTI HIV 1/2 Routine 08/25/2022 3:33 PM TELLER COORDINATOR Screen for STD (sexually transmitted disease) ANTI HCV Routine 12/25/2015 9:53 AM CDT Screen for STD (sexually transmitted disease) from Last 3 Months or Most Recently Relevant to Health Maintenance Results * (ABNORMAL) VEHICLE ASSEMBLY INSPECTOR THIN PREP PAP SCREEN IMAGED (08/14/2023 4:52 PM CDT) Case Report Gynecologic Cytology Report Case: [id number] Authorizing Provider: Glen Carrera MD Collected: 08/14/20231651 Ordering Location: [facility] Received: 08/14/20231657 Clinic First Screen: Hannah Walden Pathologist: Justin Lovelace MD Specimen: VEHICLE ASSEMBLY INSPECTOR ThinPrep Vial Screening, Cervical 08/24/2023 3:32 PM TELLER COORDINATOR [facility] INTERPRETATION/ RESULT ATYPICAL SQUAMOUS CELLS OF UNDETERMINED SIGNIFICANCE (ASCUS)(A) (none) 08/24/2023 3:32 PM TELLER COORDINATOR [facility] at 1532 TELLER COORDINATOR SPECIMEN ADEQUACY Satisfactory for evaluation Endocervical component present 08/24/2023 3:32 PM TELLER COORDINATOR [facility] HPV REQUEST HPV and PAP 08/24/2023 3:32 PM TELLER COORDINATOR [facility] Date of LMP 08/04/2023 08/24/2023 3:32 PM TELLER COORDINATOR [facility] Last Pap Date 01/22/23 08/24/2023 3:32 PM TELLER COORDINATOR [facility] Last Pap Result ASCUS 3:32 PM TELLER COORDINATOR [facility] Abnormal Pap or Egan Bx in last 5 years Yes 08/24/2023 3:32 PM TELLER COORDINATOR [facility] Menstrual Status Regular Periods 08/24/2023 3:32 PM TELLER COORDINATOR [facility] Egan Bx Done Today No 08/24/2023 3:32 PM TELLER COORDINATOR [facility] ENTR[facility] Additional Information None given 08/24/2023 3:32 PM TELLER COORDINATOR [facility] Comment: Cytology is screened at [facility] - [address], [place] [address] and [facility] - [address], [place] [address] and [facility] - [address] [place] [address] Interpreted at [facility] - [address], [place] [address] Automated Review Successful 08/24/2023 3:32 PM TELLER COORDINATOR [facility] Comment:Specimen processed s uccessfully by automated market stall vendor device, [employer] Imaging System, [employer] ANCILLARY TESTING VEHICLE ASSEMBLY INSPECTOR HPV Ordered, Please see separate report 08/24/2023 3:32 PM TELLER COORDINATOR [facility] ENTR[facility] Note The pap test is a screening technique, not a diagnostic procedure. It is used primarily to screen for squamous cancers and precursor lesions. Published studies have shown that it is subject to both false negative and false positive results. The pap test should not be used as the sole means to diagnose or exclude pre-malignant and malignant lesions. 08/24/2023 3:32 PM TELLER COORDINATOR [facility] Other (Cervical) Non-Blood / Unknown 08/14/2023 4:52 PM CDT 08/14/2023 4:58 PM CDT us Glen Carrera MD PATHOLOGY/CYTOLOGY Final R esult [facility] [address] [place] [address], [place] * ANTI HIV 1/2 (08/25/2022 3:33 PM TELLER COORDINATOR) HIV-1/HIV-2 ANTIBODY Non-Reacti ve Non-Reacti ve 08/27/2022 12:17 PM TELLER COORDINATOR [facility] TRAL [facility] Comment:HIV-1 p24 and HIV-1/ HIV-2 Ab not detected. Blood BLOOD SPECIMEN / Unknown Venipuncture / Unknown 08/25/2022 3:33 PM TELLER COORDINATOR 08/25/2022 3:33 PM TELLER COORDINATOR us Glen Carrera MD SEND OUTS Final Resu lt [facility] [address] [place] [address], [place] * COLONOSCOPY (06/01/2019 11:01 AM CDT) 06/01/2019 [...] adequate candidate for conscious sedation. The [id number] was passed through the anus and advanced [...] reponse to care. Please refer to the [facility]' medical record flowsheets and nursing notes for moderate sedation details. Total physician intraservice time was 32 minutes. Marco Estrada MD 06/01/2019 12:37:42 PM This report has been signed electronically. Note Initiated On: 06/01/2019 11:01 AM Procedure Code(s): --- Professional --- 58957, Colonoscopy, flexible; with removalof tumor(s), polyp(s), or other lesion(s) bysnare technique Diagnosis Code(s): --- Professional --- K64.8, Other hemorrhoids D12.5, Benign neoplasm of sigmoid colon K92.2, Gastrointestinal hemorrhage,unspecified CPT copyright 2018 [employer]. All rights reserved. The codes documented in this report are preliminary and upon outside sales account executive reviewmay be revised to meet current compliance requirements. Scope In: 12:04:04 PM Scope Withdrawal Time 0 hours 19 minutes 13 seconds Scope Out: 12:33:09 PM us Marco Estrada MD PROCEDURE ORD Final Res ult * ANTI HCV (12/25/2015 9:53 AM CDT) HEPATITIS C ANTIBODY Non-Reacti ve Non-Reacti ve 12/25/2015 5:11 PM CDT [facility] Blood specimen (specimen) BLOOD SPECIMEN / Unknown Venipuncture / Unknown 12/25/2015 9:53 AM CDT 12/25/2015 9:54 AM CDT Narrative [facility] - 12/25/2015 5:11 PM CDT Antibodies to HCV not detected; does not exclude the possibility of exposure to HCV. us Stefanie PARISI SEND OUTS Final Resu lt [facility] [address] [place] [address], from Last 3 Months or Most Recently Relevant to Health Maintenance Insurance [place] MEDICA[place] [facility] Advance Directives Documents on File Type Date Recorded Patient Explosive Ordnance Manager Expl anation Healthcare Directive 09/06/2008 1:59 PM [facility], 09/06/08 Care Teams Deputy Administrator Relationship Specialty Start Date End Date Glen Carrera MD [address] [place] [address] PCP - General Family Practice 08/31/18
[2025-04-26 07:52] VITALS: BP 126/82; PULSE 97; RESP 20; TEMP 36.4; O2SAT 98
[2025-04-26 08:47] LABS: Strep A DNA Probe* NOT DETECTED (Not Detectd)
--- NOTE | 2025-04-26 09:26 | ED.GENADULT ---
HPI - General Adult General Date Seen: 04/26/25 Chief complaint: Sore Throat Stated complaint: possible strep throat Time Seen by Provider: 04/26/25 08:12 History of Present Illness HPI narrative: Patient is a 44-year-old woman who comes in for couple of concerns. She says she has had a sore throat and bilateral ear pain for about a week. She is concerned about possible strep throat or ear infection. Also, she has painful lumps in bilateral axilla. She has been seen here previously for this with a presumptive diagnosis of hidradenitis superativa. She has not had fevers or systemic complaints. No drainage. Related Data Home Medications ?Medication ?Instructions ?Recorded ?Confirmed albuterol sulfate 90 mcg/actuation 1 - 2 puff inhalation Q4H PRN cough 02/01/23 04/26/25 aerosol inhaler (Ventolin HFA) Previous Rx's ?Medication ?Instructions ?Recorded doxycycline hyclate 100 mg capsule 100 mg PO BID #60 caps 04/26/25 Allergies Allergy/AdvReac Type Severity Reaction Status Date / Time prednisone Allergy Intermediate Agitated Verified 04/26/25 07:57 PFSH [facility] Medical History Ganglion of left wrist (2018) ?M67.432 - Ganglion, left wrist (ICD-10) History of vaginal delivery History of adenomatous polyp of colon (05/2019) ?Z86.010 - Personal history of colonic polyps (ICD-10) History of abnormal cervical Pap smear (2007) ?Z87.42 - Personal history of other diseases of the female genital tract (ICD-10) Surgical History History of lipoma ?Z86.018 - Personal history of other benign neoplasm (ICD-10) History of loop electrical excision procedure (LEEP) ?Z98.890 - Other specified postprocedural states (ICD-10) History of colposcopy (2007) ?Z98.890 - Other specified postprocedural states (ICD-10) Family History Maternal Grandmother Lung cancer Bone cancer Diabetes Social History Smoking Status: Current every day smoker What tobacco products do you use: cigarettes Do you use any of these nicotine containing products: None Second hand tobacco smoke exposure: No How often do you have a drink containing alcohol: never How often do you have six or more drinks on one occasion: Never AUDIT-C Alcohol total score: 0 Non-prescribed substance use: marijuana (any form) Caffeine: Yes Are you using contraception or practicing any form of control: Yes (nexaplon) service: No Exam Narrative: Exam Narrative: Vital signs reviewed In general, alert, nontoxic woman. Head: Normocephalic, atraumatic. Eyes: Sclera clear. ENT: Bilateral TMs are normal without erythema. Landmarks seen. Throat shows normal tonsils, no exudate or edema. No evidence of abscess. Neck: Supple, no adenopathy. Heart: Regular rate and rhythm. Lungs: Clear. Axilla: She has erythematous nodules in bilateral axilla, the largest is approximately 1/2 cm. No drainage, no fluctuance. No evidence of cellulitis. Skin: Acneiform lesions on her face and chest. Const: Vital Signs, click to edit/add: Vital Signs - 24 hr 04/26/25 07:52 Temperature 97.6 F Pulse Rate [Pulse Oximeter] 97 Respiratory Rate 20 Blood Pressure [Ri ght Upper Arm] 126/82 Pulse Oximetry 98 Oxygen Delivery Me thod Room Air Course Course ED Course: A strep DNA is negative. Discussed that her throat and ear pain are likely viral, would manage this supportively with ibuprofen and Tylenol, fluids rest. With regard to her hidradenitis, discussed that this is chronic. I recommended long-term course of doxycycline, which I initially prescribed through the pharmacy to give her a 1 month course with refills. She says that she does not have insurance and does not go to the doctor. She did not want to fill the prescription through the pharmacy and requested [facility] instead. I did give her 10 day course through [facility], but reviewed that this is unlikely to help control the underlying condition. Also reviewed that primary care follow-up would be indicated if she does take a longer course of doxycycline and does not find this to be helpful as they were other medications which may be beneficial. Return for worsening symptoms. Vital Signs Vital signs: Initial Vital Signs Temperature 97.6 F 04/26/25 07:52 Temperature Source Temporal Artery Scan 04/26/25 07:52 Pulse Rate 97 04/26/25 07:52 Respiratory Rate 20 04/26/25 07:52 Blood Pressure 126/82 04/26/25 07:52 Blood Pressure Mean 96 04/26/25 07:52 Blood Pressure Position Sitting 04/26/25 07:52 Pulse Oximetry 98 04/26/25 07:52 Oxygen Delivery Method Room Air 04/26/25 07:52 Vital Signs Temperature 97.6 F 04/26/25 07:52 Pulse Rate 97 04/26/25 07:52 Respiratory Rate 20 04/26/25 07:52 Blood Pressure 126/82 04/26/25 07:52 Pulse Oximetry 98 04/26/25 07:52 Oxygen Delivery Method Room Air 04/26/25 07:52 Temperature 97.6 F 04/26/25 07:52 Pulse Rate 97 04/26/25 07:52 Respiratory Rate 20 04/26/25 07:52 Blood Pressure 126/82 04/26/25 07:52 Pulse Oximetry 98 04/26/25 07:52 Oxygen Delivery Method Room Air 04/26/25 07:52 Medical Decision Making Lab Data Labs: Lab Results 04/26/25 Range/Units 08:12 Group A Strep DNA NOT DETECTED (Not Detectd) Discharge Plan Discharge Clinical Impression: Hidradenitis suppurativa, Pharyngitis Patient Disposition: Home, Self-Care Condition: Stable Instructions: Pharyngitis (ED), Hidradenitis Suppurativa (ED) Additional Instructions: Your strep test is negative. Your sore throat is likely due to viral causes and should improve over the next few days to week. You can use ibuprofen 400 mg plus or minus Tylenol 1000 mg 3 times daily as needed. The bumps in your armpits are due to a condition called hidradenitis supperativa. This is a chronic condition, and will continue to come back if not managed more chronically. I have given you a prescription for doxycycline, twice Daily, for 1 month, with 2 refills. A longer course of antibiotics like this can be helpful for management of this condition. If you find that any of these spots are getting worse rather than gradually improving, you should be seen again. There are other medications that are sometimes used to help manage this condition, if you are not improving with just the doxycycline, please make an appointment to follow-up with a primary care doctor. Prescriptions: New doxycycline hyclate 100 mg capsule 100 mg PO BID Qty: 60 2RF No Action albuterol sulfate [Ventolin HFA] 90 mcg/actuation HFA aerosol inhaler 1 - 2 puff INHALATION Q4H PRN (Reason: cough) Follow Up/Referrals: Glen Carrera MD [Primary Care Provider, Family Practice] Stand Alone Forms: S B E Info Instructions
== END 2025-04-26 09:49 | disposition home or self-care (01) ==
PROVIDERS: Emergency Provider Emergency Medicine; PCP Surgery
DX: L73.2 Hidradenitis suppurativa (principal); J02.9 Acute pharyngitis, unspecified
CPT/HCPCS: 87651; 99283; 99284

== ENCOUNTER 2025-06-05 08:06 | Emergency (ER) | payer OTHER, SELFPAY ==
--- OUTSIDE RECORDS SUMMARY | 2025-06-05 08:09 | XMS_ITS | Clinical Summary ---
Author Organization [facility] Address [address] [facility] 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 Gender Identity Not on file Sexual Orientation Not on file Last Filed Vital Signs Vital Sign Reading Time Taken Comments Blood Pressure 107/71 10/09/2018 6:45 PM MINE CAR REPAIRER Pulse - - Temperature 36.6 C (97.9 F) 10/09/2018 7:14 PM MINE CAR REPAIRER Respiratory Rate 16 10/09/2018 5:39 PM MINE CAR REPAIRER Oxygen Saturation 100% 10/09/2018 6:45 PM MINE CAR REPAIRER Inhaled Oxygen Concentration - - Weight - - Height - - Body Mass Index - - Plan of Treatment Not on file Care Teams Hardware Manager Relationship Specialty Start Date End Date [facility], [facility] [address] [place] [address] PCP - General 10/09/18
--- OUTSIDE RECORDS SUMMARY | 2025-06-05 08:09 | XMS_ITS | Clinical Summary ---
Author Organization [facility] Address [address] [place] [address] Care Team Providers Care Photography Spotter Name Role Phone None Reported, Pcp Primary Care Provider Unavail able Source Comments Patient records contain information from all sites at [facility]. For routine questions regarding patient records, call [phone] during business hours, M-F 8:00 AM - 5:00 PM Central Time. Record requests for emergency care only can be directed to [phone] at any time.[facility] Allergies Active Allergy Reactions Criticality Noted Date [...] times a day. 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
--- OUTSIDE RECORDS SUMMARY | 2025-06-05 08:09 | XMS_ITS | Clinical Summary ---
Author Organization [employer] [facility] Address [address] [place] [id number] Care Team Providers Care Wealth Management Manager Name Role Phone Glen Carrera MD Primary Care Provider [phone] Allergies Active Allergy Reactions Criticality Noted Date [...] 04/09/2007 ASC-H/HPV+ 05/27/2007 NIL 06/02/2008 HSIL 09/13/2008 [place]: NICHELLE 3 with extension into endocervical glands 02/05/2009 LEEP: NICHELLE 3, Positive NICHELLE 3 endocervical margin 12/25/2015 ASCUS/HPV Negative 04/23/2017 ASCUS/HPV Negative 02/08/2018 LSIL/HPV+ 03/01/2018 [place]: NICHELLE I, ECC NICHELLE I 03/08/2019 NIL/HPV [...] Date Smoking Tobacco: Every Day Cigarettes 2 12.6 Started: 2012 Smokeless Tobacco: Former Tobacco Cessation:Ready [...] on file Legal Sex Female 6:22 AM NUTRITION SPECIALIST Gender Identity Not on file Sexual Orientation [...] Comments Blood Pressure 120/85 09/20/2024 11:58 AM NUTRITION SPECIALIST Pulse 82 09/20/2024 11:58 AM NUTRITION SPECIALIST Temperature 37 C (98.6 F) 04/07/2023 11:26 AM CDT Respiratory Rate 16 08/29/2021 2:01 PM NUTRITION SPECIALIST Oxygen Saturation 100% 09/20/2024 11: 58 AM NUTRITION SPECIALIST Inhaled Oxygen Concentration - - Weight 72.5 kg (159 lb 12.8 oz) 024 11:58 AM NUTRITION SPECIALIST Height 164 cm (5' 4.57) 08/29/2021 2:01 PM NUTRITION SPECIALIST Body Mass Index 26.95 08/29/2021 2:01 PM NUTRITION SPECIALIST Plan of Treatment Health Maintenance Due Date [...] Additional history exists COVID-19 vaccine series ( - 2023- season) 2024 Influenza Vaccine (#1) 2025 Pap test for age 21-65 09/07/2026 3 (Verified in Care Everywhere or Patient Record), 08/14/2023, 08/14/2023, Additional history exists Colonoscopy through age 75 12/07/202812/07, 06/01/2019, 06/01/2019 Tetanus booster 08/25/2032 08/25/2022, 02/2011, 08/16/2011, Additional history exists Hepatitis C screening for ag e 18-79 Completed 12/25/2015 HIV for age 15-65 Completed 08/25/2022, 12/25/2015 Procedures Procedure Name Priority Date/Time Associated Diagnosis Comments COLONOSCOPY SCREENING Routine 12/07/2023 8:04 AM NUTRITION SPECIALIST Polyp of colon, unspecified part of colon, unspecified type RN RECRUITMENT THIN PREP PAP SCREEN IMAGED Routine 08/14/2023 4:52 PM CDT Screening for cervical cancer ANTI HIV 1/2 Routine 08/25/2022 3:33 PM NUTRITION SPECIALIST Screen for STD (sexually transmitted disease) ANTI HCV Routine 12/25/2015 9:53 AM CDT Screen for STD (sexually transmitted disease) from Last 3 Months or Most Recently Relevant to Health Maintenance Results * (ABNORMAL) RN RECRUITMENT THIN PREP PAP SCREEN IMAGED (08/14/2023 4:52 PM CDT) Case Report Gynecologic Cytology Report Case: [id number] Authorizing Provider: Glen Carrera MD Collected: 08/14/20231651 Ordering Location: [facility] Received: 08/14/2023 1658 Clinic First Screen: Hannah Walden Pathologist: Justin Lovelace MD Specimen: RN RECRUITMENT ThinPrep Vial Screening, Cervical 08/24/2023 3:32 PM NUTRITION SPECIALIST [facility] INTERPRETATION/ RESULT ATYPICAL SQUAMOUS CELLS OF UNDETERMINED SIGNIFICANCE (ASCUS)(A) (none) 08/24/2023 3:32 PM [facility]UTRITION SPECIALIST [facility] at 1532 NUTRITION SPECIALIST SPECIMEN ADEQUACY Satisfactory for evaluation Endocervical component present 08/24/2023 3:32 PM NUTRITION SPECIALIST 20x200 [facility] HPV REQUEST HPV and PAP 08/24/2023 3:32 PM NUTRITION SPECIALIST 20x200 [facility] Date of LMP 08/04/2023 08/24/2023 3:32 PM NUTRITION SPECIALIST [facility] Last Pap Date 01/22/23 08/24/2023 3:32 PM NUTRITION SPECIALIST [facility] Last Pap Result ASCUS 3:32 PM NUTRITION SPECIALIST [facility] Abnormal Pap or [place] Bx in last 5 years Yes 08/24/2023 3:32 PM NUTRITION SPECIALIST [facility] Menstrual Status Regular Periods 08/24/2023 3:32 PM NUTRITION SPECIALIST [facility] [place] Bx Done Today No 08/24/2023 3:32 PM NUTRITION SPECIALIST [facility] EN[facility] Additional Information None given 08/24/2023 3:32 PM NUTRITION SPECIALIST [facility] Comment: Cytology is screened at [facility] [email or web address] [facility] - [address], [place] [address] and [facility] - [address] [place] [address], [place] [address] and [facility] - [address] [place] [address] Interpreted at [facility] - [address], [place] [address] Automated Review Successful 08/24/2023 3:32 PM NUTRITION SPECIALIST [facility] Comment:Specimen processed s uccessfully by automated gas meter installer helper device, ThinPrep Imaging System, [employer] ANCILLARY TESTING RN RECRUITMENT HPV Ordered, Please see separate report 08/24/2023 3:32 PM NUTRITION SPECIALIST [facility] Note The pap test is a screening technique, not a diagnostic procedure. It is used primarily to screen for squamous cancers and precursor lesions. Published studies have shown that it is subject to both false negative and false positive results. The pap test should not be used as the sole means to diagnose or exclude pre-malignant and malignant lesions. 08/24/2023 3:32 PM NUTRITION SPECIALIST [facility] Other (Cervical) Non-Blood / Unknown 08/14/2023 4:52 PM CDT 08/14/2023 4:58 PM CDT Glen Carrera MD PATHOLOGY/CYTOLOGY Final R esult [facility] [address] [place] [address], [place] * ANTI HIV 1/2 (08/25/2022 3:33 PM NUTRITION SPECIALIST) HIV-1/HIV-2 ANTIBODY Non-Reacti ve Non-Reacti ve 08/27/2022 12:17 PM NUTRITION SPECIALIST [facility] TRAL LABORATORY Comment:HIV-1 p24 and HIV-1/ HIV-2 Ab not detected. Blood BLOOD SPECIMEN / Unknown Venipuncture / Unknown 08/25/2022 3:33 PM NUTRITION SPECIALIST 08/25/2022 3:33 PM NUTRITION SPECIALIST Glen Carrera MD SEND OUTS Final Resu lt [facility] [address] [place] [address], [place] * COLONOSCOPY (06/01/2019 11:01 AM CDT) [...] adequate candidate for conscious sedation. The [id number] was passed through the anus and advanced [...] reponse to care. [facility] and nursing notes for moderate sedation details. Total physician intraservice time was 32 minutes. Marco Estrada MD 06/01/2019 12:37:42 PM This report has been signed electronically. Note Initiated On: 06/01/2019 11:01 AM Procedure Code(s): --- Professional --- 09018, Colonoscopy, flexible; with removalof tumor(s), polyp(s), or other lesion(s) bysnare technique Diagnosis Code(s): --- Professional --- K64.8, Other hemorrhoids D12.5, Benign neoplasm of sigmoid colon K92.2, Gastrointestinal hemorrhage,unspecified CPT copyright 2018 [employer]. All rights reserved. The codes documented in this report are preliminary and upon pressure dispatcher reviewmay be revised to meet current compliance requirements. Scope In: 12:04:04 PM Scope Withdrawal Time 0 hours 19 minutes 13 seconds Scope Out: 12:33:09 PM us Marco Estrada MD PROCEDURE ORD Final Res ult * ANTI HCV (12/25/2015 9:53 AM CDT) HEPATITIS C ANTIBODY Non-Reacti ve Non-Reacti ve 12/25/2015 5:11 PM CDT [facility] Blood specimen (specimen) BLOOD SPECIMEN / Unknown Venipuncture / Unknown 12/25/2015 9:53 AM CDT 12/25/2015 9:54 AM CDT Narrative [facility] - 12/25/2015 5:11 PM CDT Antibodies to HCV not detected; does not exclude the possibility of exposure to HCV. us Stefanie PARISI SEND OUTS Final Resu lt [facility] 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
[2025-06-05 08:22] VITALS: BP 129/89; PULSE 92; RESP 18; TEMP 36.9; O2SAT 97; BMI 29.6
--- NOTE | 2025-06-05 08:46 | ED.UPPEXIN ---
HPI - Extremity Injury (Upper) General Time Seen by Provider: 08:46 Date Seen: 06/05/25 Chief Complaint: Extremity Pain/Injury, Upper Stated Complaint: right collarbone pain Time Seen by Provider: 06/05/25 08:46 Source: patient and RN notes reviewed Mode of arrival: ambulatory Limitations: no limitations History of Present Illness HPI narrative: This 44-year-old female is coming to the ER with concern of right shoulder and collarbone pain. She feels like her right collar bone is sticking out more or protruding more than the left side. 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 She hurts in the shoulder with range of motion, she does typically sleep on her right side and has not been able to do so because of pain in the shoulder. It is hurting in the shoulder area to move this right arm. This started about 2 months ago, she just has not had insurance to deal with it. Her sleep has been disrupted now because of it. No numbness tingling. No known direct trauma like a fall that she can remember at this time. complaint: injury to: right and shoulder Related Data Home Medications ?Medication ?Instructions ?Recorded ?Confirmed albuterol sulfate 90 mcg/actuation 1 - 2 puff inhalation Q4H PRN cough 02/01/23 06/05/25 aerosol inhaler (Ventolin HFA) Previous Rx's ?Medication ?Instructions ?Recorded doxycycline hyclate 100 mg capsule 100 mg PO BID #60 caps 04/26/25 celecoxib 200 mg capsule 200 mg PO BID #60 caps 06/05/25 ibuprofen 600 mg tablet 600 mg PO Q8H PRN #90 tabs 06/05/25 Allergies Allergy/AdvReac Type Severity Reaction Status Date / Time prednisone Allergy Intermediate Agitated Verified 06/05/25 08:30 Review of Systems Narrative: As per HPI. PFSH PFS Medical History Ganglion of left wrist (2017) ?M67.432 - Ganglion, left wrist (ICD-10) History of vaginal delivery History of adenomatous polyp of colon (05/2019) ?Z86.010 - Personal history of colonic polyps (ICD-10) History of abnormal cervical Pap smear (2007) ?Z87.42 - Personal history of other diseases of the female genital tract (ICD-10) Surgical History History of lipoma ?Z86.018 - Personal history of other benign neoplasm (ICD-10) History of loop electrical excision procedure (LEEP) ?Z98.890 - Other specified postprocedural states (ICD-10) History of colposcopy (2007) ?Z98.890 - Other specified postprocedural states (ICD-10) Family History Maternal Grandmother Lung cancer Bone cancer Diabetes Social History Smoking Status: Current every day smoker What tobacco products do you use: cigarettes Do you use any of these nicotine containing products: None Second hand tobacco smoke exposure: No How often do you have a drink containing alcohol: never How often do you have six or more drinks on one occasion: Never AUDIT-C Alcohol total score: 0 Non-prescribed substance use: marijuana (any form) Caffeine: Yes Are you using contraception or practicing any form of control: Yes (nexaplon) service: No Exam Const: Vital Signs, click to edit/add: Vital Signs - 24 hr 06/05/25 08:22 Temperature 98.4 F Pulse Rate [Pulse Oximeter] 92 Respiratory Rate 18 Blood Pressure [Ri ght Upper Arm] 129/89 Pulse Oximetry 97 Oxygen Delivery Me thod Room Air This 44-year-old female is seen in exam room 1, she is alert, interactive, no apparent distress sitting up on the bed. She does have facial lesions consistent with either some underlying acne or picking. On her anterior chest wall there seems to be some picking type lesions, nothing infected. The center of her right clavicle does seem to be more visible or protuberant when visualizing her chest. The clavicle is nontender and tell about the distal aspect along the AC joint in overlying the shoulder. She has pain with abduction of the shoulder and with forward flexion. Pain limits exam over 90? in either direction. Manipulation of the shoulder is painful for her. I do not feel an effusion of the glenohumeral joint. She has pain over the bicipital groove of the humeral head but still has preserved motor testing of her biceps. Pain limits testing of her rotator cuff at this time. Neurovascular is intact in this arm. Documenting provider has reviewed patient's vital signs: yes Course Course ED Course: Reviewed with patient it would be unlikely to have significant trauma of the bones without something high speed or direct impact. Heavy lifting certainly could have stressed her AC joint, rotator cuff, biceps tendon. Will make sure that there is no bony pathology from other etiologies, no occult fracture with imaging of her right clavicle and her right shoulder. She is in agreement with this. Will discuss plan further once the imaging has been reviewed by Radiology. Reevaluation(s) Time of Reevaluation #1: 10:18 Reevaluation #1: Have reviewed with patient her x-ray findings. I do suspect a chronic AC injury here, she still could have underlying rotator cuff pathology as well as bicipital tendinitis. This is difficult to sort out at this time given her limitations of exam with pain and generalized pain in the area. She is requesting a call in ibuprofen to her pharmacy, she states she tolerates this 600 mg better than the [id number] orals. We will try course of Celebrex for her shoulder, have advised her she does need to follow up with Orthopedics. I do not have a quick fix for her, will try to get her some patient Education on discharge. Vital Signs Vital signs: Initial Vital Signs Temperature 98.4 F 06/05/25 08:22 Temperature Source Temporal Artery Scan 06/05/25 08:22 Pulse Rate 92 06/05/25 08:22 Respiratory Rate 18 06/05/25 08:22 Blood Pressure 129/89 06/05/25 08:22 Blood Pressure Mean 102 06/05/25 08:22 Blood Pressure Position Sitting 06/05/25 08:22 Pulse Oximetry 97 06/05/25 08:22 Oxygen Delivery Method Room Air 06/05/25 08:22 Vital Signs Temperature 98.4 F 06/05/25 08:22 Pulse Rate 92 06/05/25 08:22 Respiratory Rate 18 06/05/25 08:22 Blood Pressure 129/89 06/05/25 08:22 Pulse Oximetry 97 06/05/25 08:22 Oxygen Delivery Method Room Air 06/05/25 08:22 Temperature 98.4 F 06/05/25 08:22 Pulse Rate 92 06/05/25 08:22 Respiratory Rate 18 06/05/25 08:22 Blood Pressure 129/89 06/05/25 08:22 Pulse Oximetry 97 06/05/25 08:22 Oxygen Delivery Method Room Air 06/05/25 08:22 MDM - Extremity Injury (Upper) Imaging Data XR right shoulder: Attestation: I have reviewed the pertinent imaging results. My impression: Do not appreciate any definitive fracture, clavicle looks like it may be slightly high-riding along the AC joint, await Radiology over-read. Radiologist's impression: Patient: GILDA HUSSEIN Facility:?[facility] Patient ID:?[id number] Site Patient ID:?[id number]. Site :?1980 Study:?XRay-Shoulder Right 3 view-06/05/2025 9:22:49 AM Ordering Physician:?Javid Reaves Final Report: INDICATION: Pain, possible remote injury COMPARISON: Same day clavicle radiograph TECHNIQUE: Three views right shoulder. FINDINGS: No acute or healing fracture. There is some mild asymmetry of the acromioclavicular joint with the clavicle very slightly elevated by about 5 millimeters. Joint spaces are normal. No focal bone lesions. Normal bone mineralization. Soft tissues are normal. No foreign body. IMPRESSION: Mild asymmetry of the right acromioclavicular joint. This can be projectional. Consider weighted radiographs or MRI to assess AC joint. Dictated by Eve Broderick MD @ 06/05/2025 9:33:32 AM (Electronic Signature) XR right clavicle: Attestation: I have reviewed the pertinent imaging results. My impression: Do not appreciate any acute pathology on my preliminary review. Radiologist's impression: Patient: GILDA HUSSEIN Facility:?[facility] Patient ID:?[id number] Site Patient ID:?[id number]. Site :?[id number] Study:?XRay-Extremity Right CLAVICLE 2 VIEW-06/05/2025 9:22:01 AM Ordering Physician:?Javid Reaves Final Report: INDICATION: Pain, remote injury COMPARISON: None. TECHNIQUE: Two views right clavicle. FINDINGS: No acute or healing fracture. Normal acromioclavicular joint alignment. Joint spaces are normal. No focal bone lesions. Normal bone mineralization. Soft tissues are normal. No foreign body. IMPRESSION: Normal right clavicle radiographs. Dictated by Eve Broderick MD @ 06/05/2025 9:30:59 AM (Electronic Signature) Discharge Plan Discharge Clinical Impression: Pain in right shoulder Patient Disposition: Home, Self-Care Condition: Stable Instructions: Acromioclavicular Separation (ED), Rotator Cuff Injury (ED), Shoulder Pain (ED) Additional Instructions: Need to follow up in clinic. Recommend orthopedic appointment if possible, phone number is [phone]. If you are unable to follow up with Orthopedics, please see your primary within the next week. You may need physical therapy referral to help improve your pain and recover from this. Based on imaging and examination, there is probable right acromioclavicular joint injury/separation. I do wonder if potentially there could be further ligamentous problems like rotator cuff injury or even biceps tendinitis. Follow-up would be very important for you. You can try ice or heat to the area, use whichever makes it feel better. Try to limit overhead activity with the arm at this time until further advised by a physical therapy or follow-up with physician. I have sent in Celebrex to try, do not recommend using ibuprofen while on the Celebrex. You can also try Tylenol for extra pain management, follow bottle directions. Activity Level: Activity as Tolerated Prescriptions: New celecoxib 200 mg capsule 200 mg PO BID Qty: 60 2RF ibuprofen 600 mg tablet 600 mg PO Q8H PRNQty: 90 0RF No Action doxycycline hyclate 100 mg capsule 100 mg PO BID Qty: 60 2RF albuterol sulfate [Ventolin HFA] 90 mcg/actuation HFA aerosol inhaler 1 - 2 puff INHALATION Q4H PRN (Reason: cough) Follow Up/Referrals: Glen Carrera MD [Primary Care Provider, Family Practice] Stand Alone Forms: [facility] Info Instructions
--- NOTE | 2025-06-05 08:53 | CRLHL7_ITS ---
For Patients: As a result of the Cures Act, medical imaging exams and procedure reports are released immediately into your electronic medical record. You may view this report before your referring provider. If you have questions, please contact your health care provider. INDICATION: Pain, remote injury COMPARISON: None. TECHNIQUE: Two views right clavicle. FINDINGS: No acute or healing fracture. Normal acromioclavicular joint alignment. Joint spaces are normal. No focal bone lesions. Normal bone mineralization. Soft tissues are normal. No foreign body. IMPRESSION: Normal right clavicle radiographs. Dictated by Eve Broderick MD @ 06/05/2025 9:30:59 AM (Electronically Signed)
--- NOTE | 2025-06-05 08:53 | CRLHL7_ITS ---
For Patients: As a result of the Cures Act, medical imaging exams and procedure reports are released immediately into your electronic medical record. You may view this report before your referring provider. If you have questions, please contact your health care provider. INDICATION: Pain, possible remote injury COMPARISON: Same day clavicle radiograph TECHNIQUE: Three views right shoulder. FINDINGS: No acute or healing fracture. There is some mild asymmetry of the acromioclavicular joint with the clavicle very slightly elevated by about 5 millimeters. Joint spaces are normal. No focal bone lesions. Normal bone mineralization. Soft tissues are normal. No foreign body. IMPRESSION: Mild asymmetry of the right acromioclavicular joint. This can be projectional. Consider weighted radiographs or MRI to assess AC joint. Dictated by Eve Broderick MD @ 06/05/2025 9:33:32 AM (Electronically Signed)
== END 2025-06-05 11:03 | disposition home or self-care (01) ==
PROVIDERS: Emergency Provider Family Medicine; PCP Surgery
DX: S43.51XA Sprain of right acromioclavicular joint, initial encounter (principal); X50.0XXA Overexertion from strenuous movement or load, initial encounter
CPT/HCPCS: 73000; 73030; 99283; 99284